=== PATIENT | female | born 1980 | race Caucasian/White ===

== ENCOUNTER 2021-05-18 13:24 | Emergency (ER) | payer OTHER ==
[~2021-05-18] VITALS: Ht 167.6 cm; Wt 56.2 kg
[~2021-05-18 13:24] MED LIST: ACET325 PO; ALBU90OI INH; AMOX500 PO; CEPH500 PO; CODGUAEL PO; CYCL10 PO; HYDACE5 PO; IBUHYD PO; LORA2 PO; META800 PO; NAPR500 PO; PENVK500 PO; PROACE100 PO; RXCYCL10 PO; RXHYDACE PO; RXLORA1 PO; RXPENVK250 PO; RXPROACE PO
== END 2021-05-18 15:06 | disposition home or self-care (01) ==
LOC: ER 13:24
DX: S61.511A Laceration without foreign body of right wrist, initial encounter (principal); X58.XXXA Exposure to other specified factors, initial encounter
CPT/HCPCS: 90471; 90714; 99283